=== PATIENT | male | born 1945 | race Caucasian/White ===

== ENCOUNTER 2016-11-10 07:58 | Inpatient (IN) ==
[2016-11-03 12:19] LABS: Blood Urea Nitrogen 12 mg/dl (8-23)
[2016-11-03 12:36] LABS: Basophils # (Auto) 0 K/mcL (0.0-0.3); Basophils % (Auto) 0.2 % (0.0-2.0); Eosinophils # (Auto) 0.2 K/mcL (0.0-0.7); Eosinophils % (Auto) 1.8 % (0.0-7.0); Granulocytes % (Auto) 67.9 % (38.0-78.0); Lymphocytes % (Auto) 22.4 % (15.5-49.0); Mean Cell Volume 92.3 fL (80.0-100.0); Mean Corpuscular Hemoglobin 30.4 pg (26.0-34.0); Monocytes # (Auto) 0.7 K/mcL (0.1-0.9); Monocytes % (Auto) 7.7 % (1.0-9.0); Platelet Count 282 K/mcL (140-440); RBC 4.97 M/mcL (4.50-5.90); Red Cell Distribution Width 13.2 % (11.5-14.5)
[2016-11-03 14:31] LABS: Appearance,Urine CLEAR; Bilirubin,Urine NEG (NEG); Color,Urine YELLOW; Glucose,Urine (UA) NEGATIVE (NEG); Leukocyte Esterase,Urine NEG /uL (NEG); Nitrate,Urine NEG (NEG); Protein,Urine NEG (NEG); Specific Gravity,Urine 1.014 (1.000-1.035); Urine Blood NEG mg/dL (<0.03); Urobilinogen,Urine NEG (NEG)
[~2016-11-10 07:58] MED LIST: ACETAMINOPHEN 500 MG TABLET PO SCH; CELECOXIB 200 MG CAPSULE PO SCH; PREGABALIN 150 MG CAPSULE PO SCH; ceFAZolin 1 GM VIAL IV SCH; oxyCODONE 10 MG TAB.ER.12H PO SCH
[2016-11-10] MEDS ORDERED: LIDOCAINE HCL/PF 100 MG/5 ML SYRINGE IV ONE (09:55)
[2016-11-10] MEDS ORDERED: MIDAZOLAM 5 MG/5 ML VIAL IV ONE (09:55)
[2016-11-10] MEDS ORDERED: HYDROmorphone 2 MG/ML SYRINGE IV ONE (09:55)
[2016-11-10] MEDS ORDERED: ONDANSETRON 4 MG/2 ML VIAL IV ONE (09:55)
[2016-11-10] MEDS ORDERED: TRANEXAMIC ACID 1,000 MG/10 ML VIAL IV ONE (09:55)
[2016-11-10] MEDS ORDERED: fentaNYL 250 MCG/5 ML VIAL IV ONE (09:55)
[2016-11-10] MEDS ORDERED: ROPIVACAINE HCL/PF 30 ML VIAL IJ ONE (09:55)
[2016-11-10] MEDS ORDERED: SUCCINYLCHOLINE 20 MG/ML ML IV ONE (09:55)
[2016-11-10] MEDS ORDERED: PROPOFOL 200 MG/20 ML VIAL IV ONE (09:55)
[2016-11-10] MEDS ORDERED: DEXAMETHASONE 10 MG/ML VIAL IV ONE (09:55)
[2016-11-10] MEDS ORDERED: GENTAMICIN SULFATE 800 MG/20 ML VIAL IR ONE (10:26)
[2016-11-10] MEDS ORDERED: POLYETHYLENE GLYCOL 3350 17 GM PACKET PO PRN (11:06)
[2016-11-10] MEDS ORDERED: MAGNESIUM HYDROXIDE 30 ML ORAL.SUSP PO PRN (11:06)
[2016-11-10] MEDS ORDERED: HYDROmorphone 2 MG/ML SYRINGE IV PRN ×2 (11:06→11:10)
[2016-11-10] MEDS ORDERED: ONDANSETRON 4 MG/2 ML VIAL IV PRN ×2 (11:06→11:10)
[2016-11-10] MEDS ORDERED: FLEETS ADULT ENEMA PR PRN (11:06)
[2016-11-10] MEDS ORDERED: BENZOCAINE/MENTHOL 1 LOZENGE PO PRN ×2 (11:06→11:10)
[2016-11-10] MEDS ORDERED: ACETAMINOPHEN 325 MG TABLET PO PRN (11:06)
[2016-11-10] MEDS ORDERED: BISACODYL 10 MG SUPP.RECT PR PRN (11:06)
[2016-11-10] MEDS ORDERED: TRANEXAMIC ACID 1,000 MG/10 ML VIAL IV SCH (11:06)
[2016-11-10] MEDS ORDERED: fentaNYL 100 MCG/2 ML VIAL IV PRN (11:10)
[2016-11-10] MEDS ORDERED: FLUMAZENIL 0.1 MG/ML ML IV PRN (11:10)
[2016-11-10] MEDS ORDERED: PROMETHAZINE 25 MG/ML VIAL IV PRN (11:10)
[2016-11-10] MEDS ORDERED: LACTATED RINGERS 250 ML IV PRN (11:10)
[2016-11-10] MEDS ORDERED: NALOXONE HCL 0.4 MG/ML VIAL IV PRN (11:10)
[2016-11-10] MEDS ORDERED: diphenhydrAMINE 50 MG/ML VIAL IV PRN (11:10)
[2016-11-10] MEDS ORDERED: MEPERIDINE 25 MG/ML SYRINGE IV PRN (11:10)
[2016-11-10] MEDS ORDERED: IPRATROPIUM/ALBUTEROL 3 ML AMPUL.NEB NEB PRN (11:10)
[2016-11-10] MEDS ORDERED: METHOCARBAMOL 1,000 MG/10 ML VIAL IV PRN (11:10)
--- NOTE | 2016-11-10 11:10 | Brief Operative Note ---
Date of procedure: 11/10/16 Pre-op diagnosis: left shoulder djd Post-op diagnosis: same Procedure: left reverse tsa Grafts/Implants: Yes Anesthesia: GETA Complications: none Complications Description: 11/10/16 11:10 none Surgeon: Wisam Dozier Bookbinder Chief: Aaron Dickens Estimated blood loss (cc): 20 Specimens Removed/Pathology: none sent Condition: stable Disposition: PACU
[2016-11-10] MEDS ORDERED: LACTATED RINGERS 1,000 ML IV SCH (11:15)
--- NOTE | 2016-11-10 11:35 | Operative Note ---
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 PROCEDURE: Left reverse total shoulder. SURGEON: Wisam Dozier MD. MEDICAL RECORDS SECRETARY: Aaron Dickens PA-C. ANESTHESIA: General LMA anesthesia. COMPLICATIONS: None. DESCRIPTION OF PROCEDURE: The patient was brought to the operating room and placed supine on the operating table. Once asleep, the patient had the left arm sterilely prepped and draped in the usual sterile fashion. Once done, I confirmed this as the operative site as the left arm. We placed Ioban over the skin and then made a deltopectoral interval through a prior incision. The deltopectoral interval was identified and retracted laterally, found the conjoined tendon which was retracted medially. We released the remnants of the subscap. Complete tear of the supraspinatus and infraspinatus anchor was removed. We then made our femoral neck cut just below the anatomical neck region. The ball was removed and then subluxed the humerus posteriorly. Once this was done, we then did a 360 degree release of the capsular region. Once completed, I then placed a central pin hole. This was reamed up to a size 40, removed the remnants of the labrum. Once this was done and a 10 degree inferior tilt had been placed on the glenoid metaglene, I then placed a central screw 32 mm centrally and then a superior screw which was 40, an inferior screw which was 32, anterior screw was 20. These were locked into place in the locking metaglene. A 40 mm with 2 mm inferior eccentricity, as well as 6 mm of offset was placed. This was tapped into place. We then prepared the humerus. We broached up to the size 10 stem, trialed a size 10 with a standard thickness poly. Once this was done, I then reduced the shoulder with the trials, and this seemed to fit very nicely. The final implants were placed with a 10 stem and a standard thickness poly. This was a cementless stem. Excellent fixation achieved. We irrigated thoroughly and then reduced the shoulder. Shoulder taken through the full range of motion without difficulty in any plane. We did not repair the subscap. We irrigated thoroughly, repaired the deltopectoral interval with 2-0 Vicryl. We repaired the skin with 2-0 Vicryl and an adhesive closure. The patient was placed in a Donjoy sling. The patient tolerated this well without complication. [email or web address] Job ID: [id number] Doc ID: [id number] Wisam Dozier MD
--- NOTE | 2016-11-10 13:32 | XRay Report ---
CLINICAL INFORMATION: Postop total shoulder prostheses COMPARISON: None. FINDINGS: Left total shoulder prostheses anatomically aligned. No osseous abnormality. Soft tissue swelling seen as expected. IMPRESSION: Negative Interpreted and Authenticated by: Jez Perez 11/10/16
[2016-11-10] MEDS: LISINOPRIL 20 MG TABLET PO SCH (13:36)
[2016-11-10] MEDS: amLODIPine 10 MG TABLET PO SCH (13:36)
[2016-11-10] MEDS: 0.9 % SODIUM CHLORIDE 10 ML SYRINGE IV SCH ×2 (13:40→22:01)
[2016-11-10] MEDS: KETOROLAC 15 MG/ML VIAL IV PRN (15:14)
[2016-11-10] MEDS: ceFAZolin 1 GM VIAL IV SCH (17:26)
[2016-11-10] MEDS: HYDROcodone/APAP 10/325MG TABLET PO PRN (17:43)
[2016-11-10] MEDS: 0.45 % SODIUM CHLORIDE 1,000 ML IV SCH ×2 (18:59→19:22)
[2016-11-10] MEDS: DOCUSATE SODIUM 100 MG CAPSULE PO SCH (20:51)
[2016-11-10] MEDS ORDERED: TEMAZEPAM 15 MG CAPSULE PO PRN (21:00)
[2016-11-10] MEDS ORDERED: SENNOSIDES 1 TABLET PO SCH (21:00)
[2016-11-10] MEDS ORDERED: PRAMIPEXOLE 0.25 MG TABLET PO SCH (21:00)
[2016-11-11] MEDS: ceFAZolin 1 GM VIAL IV SCH (01:44)
[2016-11-11] MEDS: 0.45 % SODIUM CHLORIDE 1,000 ML IV SCH (02:39)
[2016-11-11] MEDS: HYDROcodone/APAP 10/325MG TABLET PO PRN ×2 (04:15→07:41)
[2016-11-11] MEDS: 0.9 % SODIUM CHLORIDE 10 ML SYRINGE IV SCH (04:16)
--- NOTE | 2016-11-11 07:16 | Orthopedic Progress Note ---
Subjective Patient information: Note initiated : 11/11/16 at 7:14 am Service Date, if different from initiated Date: [] Patient: Geovanna Fitzgerald 71 y/o M admitted on 11/10/16 for Left Reverse Total Sholder Arthroplasty with Bicep. Chief Complaint: [minimal pain and eating well] Objective Vital signs: Vital Signs Temp Pulse Resp BP BP Pulse Ox 11/11/16 04:00 98.6 F 107 H 14 173/90 93 11/11/16 00:00 98.2 F 99 H 14 137/79 94 11/10/16 20:00 98.3 F 118 H 14 145/73 93 11/10/16 15:29 104 H 171/89 94 11/10/16 15:14 100 H 137/81 93 11/10/16 14:58 94 H 155/93 95 11/10/16 14:43 90 144/95 93 11/10/16 14:28 88 163/89 94 11/10/16 14:13 89 171/97 96 11/10/16 14:04 95 11/10/16 13:58 86 177/98 98 11/10/16 13:43 81 168/104 93 11/10/16 13:28 81 179/95 93 11/10/16 12:15 97.5 F L 86 14 171/85 97 11/10/16 11:57 71 11 L 152/71 97 11/10/16 11:42 68 12 151/85 100 11/10/16 11:32 69 10 L 161/80 100 11/10/16 11:22 97.3 F L 70 10 L 158/81 100 11/10/16 08:00 98.5 F 87 18 191/99 97 Intake and Output 11/10/16 11/11/16 11/11/16 21:59 05:59 13:59 Intake Total 240 / 240 880 / 880 Output Total 650 / 650 1100 / 1100 Balance -410 / -410 -220 / -220 Intake: Oral 240 / 240 880 / 880 Output: Void Amount 650 / 650 1100 / 1100 Other: Meal Dinner Percent of Meal Consumed 100% Feeding Ability Independent Weight 213 lb Intake & Output: Intake & Output 11/10/16 11/11/16 11/11/16 21:59 05:59 13:59 Intake Total 240 / 240 880 / 880 Output Total 650 / 650 1100 / 1100 Balance -410 / -410 -220 / -220 Weight 213 lb Intake: Oral 240 / 240 880 / 880 Output: Void Amount 650 / 650 1100 / 1100 Other: Meal Dinner Percent of Meal Consumed 100% Feeding Ability Independent Incision: Yes healing Incision clean and dry: Yes Dressing: Yes clean Weight bearing status: partial Neurological exam IM: Yes alert, Yes oriented X3, Yes neurovascular intact Extremities exam IM: Yes Foot pink and warm, Yes neurovascular intact - Labs CBC & BMP: 11/03/16 10:16 11/03/16 10:16 Labs: 11/03/16 10:16 Hgb 15.1 Hct 45.9
--- NOTE | 2016-11-11 07:19 | Discharge Summary ---
Ortho Discharge - TSA - Patient Instructions Diet: Regular Diet Activity: activity as tolerated, weight bearing as tolerated Total Shoulder Protocol: Leave immobilizer in place except for bathing and ROM. Abduction pillow. Continue to wear sling until seen by physician. Codman Pendulum : These exercises use momentum produced by your body to move your shoulder joint. Bend your knees and shift your weight to your front leg, then back, allowing your arm to swing in the same directions. Using the same technique, alternately shift your weight between your right and left legs, allowing your arm to swing from side to side. These exercises are also performed in counterclockwise and clockwise circular motions. Typically these exercises are performed several times per day, for a set number repetitions or minutes, such as 20 times in a row or 5 minutes at a time. Dressing Care: Teresael Ag - leave on for 5 days Patient Education: Shoulder Arthroplasty (DC) - Follow Up Plan Follow Up Appointments: Aaron Dickens PA-C [Physician Value Advisor] - 11/25/16 9:20 am Disposition: Home, Self-Care Prognosis: Good Rehab Potential: Good I certify that the patient requires SNF services: No Overall status at discharge: patient is back to baseline - Orders For Discharge Additional Discharge Orders: Physical Therapy at Discharge - TSA Location: Determined By Patient Brace/Splint Location: Determined By Patient
[2016-11-11] MEDS ORDERED: LEVOTHYROXINE 50 MCG TABLET PO SCH (07:30)
[2016-11-11] MEDS: KETOROLAC 15 MG/ML VIAL IV PRN (07:31)
[2016-11-11] MEDS: LISINOPRIL 20 MG TABLET PO SCH (07:31)
[2016-11-11] MEDS: amLODIPine 10 MG TABLET PO SCH (07:31)
[2016-11-11] MEDS: DOCUSATE SODIUM 100 MG CAPSULE PO SCH (08:27)
[2016-11-11] MEDS ORDERED: HYDROCHLOROTHIAZIDE 25 MG TABLET PO SCH (09:00)
[2016-11-11] MEDS ORDERED: DULoxetine 30 MG CAPSULE PO SCH (09:00)
[2016-11-11] MEDS ORDERED: MULTIVIT,THER IRON,CA,FA & MIN 1 TABLET PO SCH (09:00)
== END 2016-11-11 09:20 | disposition home or self-care (01) | DRG 483 ==
LOC: MEDSUR 07:58
PROVIDERS: ADMIT Orthopaedic Surgery; ATTEND Orthopaedic Surgery